=== PATIENT | male | born 1995 | race African-American/Black ===

== ENCOUNTER 2018-07-30 15:00 | Emergency (ER) | payer SELFPAY ==
[~2018-07-30] VITALS: Ht 182.9 cm; Wt 81.6 kg
[2018-07-30] VITALS (7 sets, daily range): BP systolic 122–132; BP diastolic 68–76
[2018-07-30] MEDS ORDERED: LORazepam Inj 2mg/ml 1ml IM ONE (15:15)
[2018-07-30] MEDS ORDERED: DiphenhydrAMINE 50mg/ml Inj IM ONE (15:15)
[2018-07-30] MEDS ORDERED: Haloperidol 5mg/ml Inj IM ONE ×2 (15:15→15:45)
--- NOTE | 2018-07-30 15:28 | NUR ---
Johanny wu in EDM - 07/30/18 at 1557 by LAVELL ED Note: BEHAVIORAL RESTRAINTS APPLIED PER DR ATUL MONTAÑO.
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
--- NOTE | 2018-07-30 15:33 | Emergency Room Report ---
History of Present Illness General Chief Complaint: Overdose Source: Patient, EMS Present Illness HPI Patient presents with abnormal behavior. Paramedics were summoned and evaluated him with Accu-Chek and EKG. He refused to walk at that time. When he did try to walk he started to stumble through traffic and they felt he was a danger to himself. The patient admits to doing marijuana and states that it might be laced with something. He denies any other psychiatric or medical problems at this time. 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 Allergies: Coded Allergies: No Known Allergies (Unverified , 07/30/18) Patient History Limited by: other - refuses to answer Past Medical History: see triage record Social History: Reports: drug use - thc Social History Narrative homeless Reviewed Nursing Documentation: PMH: Agreed; PSxH: Agreed Nursing Documentation-PMH Past Medical History: No History, Except For Review of Systems All Other Systems: limited Physical Exam Vital Signs Date Time Temp Pulse Resp B/P (MAP) Pulse Ox O2 Delivery O2 Flow Rate FiO2 07/30/18 14:53 130 Sp02 EP Interpretation: reviewed, normal General Appearance: well appearing, other - GCS 14 Head: normocephalic Eyes: bilateral eye PERRL, bilateral eye EOMI, bilateral eye Scleral Injection ENT: dry mucus membranes Neck: supple Respiratory: lungs clear, normal breath sounds Cardiovascular #1: regular rate, rhythm Cardiovascular #2: 2+ radial (R) Gastrointestinal: normal inspection, non tender, no mass, non-distended, decreased bowel sounds Musculoskeletal: back normal, normal range of motion Neurologic: alert, oriented - will not answer orientation questions Psychiatric: other - violently trying to get off of gurney, will not answer SI or HI questions Skin: normal inspection, warm/dry Medical Decision Making Restraint Attestation I, Melchor Arita MD, have personally evaluated this patient. Laboratory tests have been reviewed and addressed accordingly. The patient is deemed to present a danger to themselves and/or others. This is based on the exam, history ( provided by EMS) and observed or reported behavior. Attempts for non-invasive measures have been considered and/or attempted, however, have been futile. It is in the best interest of the nursing staff, the patient, and others involved in this patient's care that behavioral restraints be applied. Patient evaluation reveals the following: violently trying to bran off of cecilerney , refusing to answer questions. Medical: Substance Abuse Reaction to Intervention: No change Restraint Reassesment Patient sedated. Restraints removed at 16:10. Patient sleepy but follow commands to open eyes and lift hands. Diagnostic Impression: Primary Impression: Abnormal behavior Additional Impressions: THC use UTI (urinary tract infection) Qualified Codes: N30.00 - Acute cystitis without hematuria ER Course Patient presents with altered level of consciousness and behavior with alleged overdose of THC possibly laced with something. Differential includes electrolyte imbalance, substance abuse, psychiatric disorder amongst others. At this point he's not able to make appropriate decisions and is unsteady on his feet. He's placed on a medical hold, behavioral restraints are applied and the patient will be sedated. EKG sinus tachycardia. Labs with positive for THC. (Benzos had been given here. ) Pyuria. Rocephin given. 17:10 Sleeping. Opens eyes to command. O2 sat 98%. Patient ambulatory. Denies SI or HI. Refuses to wait for discharge papers. Laboratory Tests Test 07/30/18 15:20 White Blood Count 5.3 K/UL (4.8-10.8) Red Blood Count 4.94 M/UL (4.70-6.10) Hemoglobin 14.1 G/DL (14.2-18.0) L Hematocrit 41.1 % (42.0-52.0) L Mean Corpuscular Volume 83 FL (80-99) Mean Corpuscular Hemoglobin 28.6 PG (27.0-31.0) Mean Corpuscular Hemoglobin Concent 34.5 G/DL (32.0-36.0) Red Cell Distribution Width 11.1 % (11.6-14.8) L Platelet Count 191 K/UL (150-450) Mean Platelet Volume 6.6 FL (6.5-10.1) Neutrophils (%) (Auto) 57.5 % (45.0-75.0) Lymphocytes (%) (Auto) 31.3 % (20.0-45.0) Monocytes (%) (Auto) 7.8 % (1.0-10.0) Eosinophils (%) (Auto) 1.3 % (0.0-3.0) Basophils (%) (Auto) 2.2 % (0.0-2.0) H Urine Color Yellow Urine Appearance Clear Urine pH 5 (4.5-8.0) Urine Specific Byron 1.025 (1.005-1.035) Urine Protein 2+ (NEGATIVE) H Urine Glucose (UA) Negative (NEGATIVE) Urine Ketones 1+ (NEGATIVE) H Urine Blood Negative (NEGATIVE) Urine Nitrite Negative (NEGATIVE) Urine Bilirubin Negative (NEGATIVE) Urine Urobilinogen 1 MG/DL (0.0-1.0) H Urine Leukocyte Esterase 1+ (NEGATIVE) H Urine RBC 0-2 /HPF (0 - 0) H Urine WBC 5-10 /HPF (0 - 0) H Urine Squamous Epithelial Cells None /LPF (NONE/OCC) Urine Bacteria Few /HPF (NONE) Urine Granular Casts 0-2 /LPF (NONE) H Sodium Level 142 MMOL/L (136-145) Potassium Level 3.5 MMOL/L (3.5-5.1) Chloride Level 106 MMOL/L (98-107) Carbon Dioxide Level 26 MMOL/L (21-32) Anion Gap 10 mmol/L (5-15) Blood Urea Nitrogen 12 mg/dL (7-18) Creatinine 1.2 MG/DL (0.55-1.30) Estimate Glomerular Filtration Rate > 60 mL/min (>60) Glucose Level 85 MG/DL (74-106) Calcium Level 9.1 MG/DL (8.5-10.1) Total Bilirubin 0.7 MG/DL (0.2-1.0) Aspartate Amino Transferase (AST) 24 U/L (15-37) Alanine Aminotransferase (ALT) 24 U/L (12-78) Alkaline Phosphatase 58 U/L (46-116) Total Creatine Kinase 205 U/L (26-308) Total Protein 7.4 G/DL (6.4-8.2) Albumin 4.3 G/DL (3.4-5.0) Globulin 3.1 g/dL Albumin/Globulin Ratio 1.4 (1.0-2.7) Salicylates Level 1.7 ug/mL (2.8-20) L Urine Opiates Screen Negative (NEGATIVE) Acetaminophen Level < 2 MCG/ML (10-30) L Urine Barbiturates Screen Negative (NEGATIVE) Phencyclidine (PCP) Screen Negative (NEGATIVE) Urine Amphetamines Screen Negative (NEGATIVE) Urine Benzodiazepines Screen Positive (NEGATIVE) H Urine Cocaine Screen Negative (NEGATIVE) Urine Marijuana (THC) Screen Positive (NEGATIVE) H Serum Alcohol < 3 mg/dL EKG Diagnostic Results Rate: tachycardiac Rhythm: NSR ST Segments: no acute changes - ST Rhythm Strip Diag. Results EP Interpretation: yes Rhythm: no PVC's, no ectopy, other - ST Last Vital Signs Date Time Temp Pulse Resp B/P (MAP) Pulse Ox O2 Delivery O2 Flow Rate FiO2 07/30/18 19:35 98.2 76 18 123/76 98 Room Air Status: improved Disposition: ELOPED Condition: Improved Melchor Arita MD Jul 30, 2018 15:33
--- NOTE | 2018-07-30 15:35 | NUR ---
ED Nurse Note: PT EXTREMELY AGITATED AND COMBATIVE ALL OF A SUDDEN. PT YELLING, "GET ME THE FUCK OUT OF HERE!" PT FIGHTING RESTRAINTS AND BANGING HEAD ON THE BED AND CONTINUOUSLY SCREAMING. IM VERSED AND HALDOL DOSAGE VERIFIED WITH DR POLLARD AND ADMINISTERED PER ORDER.
[2018-07-30] MEDS ORDERED: Haloperidol 5mg/ml Inj ONE (15:36)
[2018-07-30 15:55] LABS: BASOPHILS % (AUTO) 2.2 % (0.0-2.0); EOSINOPHILS % (AUTO) 1.3 % (0.0-3.0); HEMATOCRIT 41.1 % (42.0-52.0); HEMOGLOBIN 14.1 G/DL (14.2-18.0); LYMPHOCYTES % (AUTO) 31.3 % (20.0-45.0); MEAN CORPUSCULAR VOLUME 83 FL (80-99); MONOCYTES % (AUTO) 7.8 % (1.0-10.0); NEUTROPHILS % (AUTO) 57.5 % (45.0-75.0); PLATELET COUNT 191 K/UL (150-450); RED BLOOD COUNT 4.94 M/UL (4.70-6.10); RED CELL DISTRIBUTION WIDTH 11.1 % (11.6-14.8); WHITE BLOOD COUNT 5.3 K/UL (4.8-10.8)
[2018-07-30 15:56] LABS: ANION GAP 10 mmol/L (5-15); APPEARANCE,URINE CLEAR; BILIRUBIN, URINE NEGATIVE (NEGATIVE); BLOOD UREA NITROGEN 12 mg/dL (7-18); CALCIUM 9.1 MG/DL (8.5-10.1); CARBON DIOXIDE 26 MMOL/L (21-32); CHLORIDE 106 MMOL/L (98-107); CREATININE 1.2 MG/DL (0.55-1.30); GLUCOSE, URINE (UA) NEGATIVE (NEGATIVE); KETONES,URINE 1+ (NEGATIVE); LEUKOCYTE ESTERASE ,URINE 1+ (NEGATIVE); NITRITE,URINE NEGATIVE (NEGATIVE); PH,URINE 5 (4.5-8.0); POTASSIUM 3.5 MMOL/L (3.5-5.1); PROTEIN,URINE 2+ (NEGATIVE); SODIUM 142 MMOL/L (136-145); UROBILINOGEN,URINE 1 MG/DL (0.0-1.0)
[2018-07-30 16:00] LABS: ALANINE AMINOTRANSFERASE 24 U/L (12-78); ALBUMIN 4.3 G/DL (3.4-5.0); ALBUMIN/GLOBULIN RATIO 1.4 (1.0-2.7); ALKALINE PHOSPHATASE 58 U/L (46-116); ASPARTATE AMINO TRANSFERASE 24 U/L (15-37); BILIRUBIN,TOTAL 0.7 MG/DL (0.2-1.0); CREATINE KINASE 205 U/L (26-308)
[2018-07-30 16:03] LABS: COLOR,URINE YELLOW
--- NOTE | 2018-07-30 16:13 | NUR ---
ED Nurse Note: PT NOW CALM AND VERBALIZES THAT HE IS WILLING TO COOPERATE TO GET OUT OF ER SOON HE CAN. RESTRAINTS REMOVED. PT REMAINS CALM AND STATES HE WILL SLEEP UNTIL RESULTS OF LABS ARE AVAILABLE. PT LAYING PEACEFULLY IN BED IN NAD.
[2018-07-30] MEDS ORDERED: cefTRIAXone 1 GM in NS 55 ML IVPB ONE (16:30)
--- NOTE | 2018-07-30 19:34 | NUR ---
ED Nurse Note: Received patient from TROY Willson. Patient reports no distress and is sleeping, patient is able to be awakened.
--- NOTE | 2018-07-30 20:35 | NUR ---
ED Nurse Note: Patient walked out ED with all belongings, patient was informed that discharge papers will be printed out but left. Patient's IV is still currently on patient, IV located on the right AC 20 gauge. patient also took site monitor leads. unable to find patient outside. Patient has not signed paperwork.
--- NOTE | 2018-07-31 13:35 | Cardiology Report ---
APPROVED REPORT EKG Measurement Heart [id number] Sinus tachycardia Otherwise normal ECG
== END 2018-07-30 20:35 | disposition left against medical advice (07) ==
LOC: EDBD 15:00 → EMR 15:22
DX: F91.9 Conduct disorder, unspecified (principal); F12.90 Cannabis use, unspecified, uncomplicated; N39.0 Urinary tract infection, site not specified; R00.0 Tachycardia, unspecified
CPT/HCPCS: 36415; 80053; 80307; 81003; 82550; 85025; 93005; 96361; 96365; 96372; 99284; G0480; J0696; J1200; J1630; J2250; 80329

== ENCOUNTER 2018-07-30 23:22 | Emergency (ER) | payer MEDICAID ==
[~2018-07-30] VITALS: Ht 180.3 cm; Wt 81.6 kg
[2018-07-30 23:30] VITALS: BP 146/81
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
--- NOTE | 2018-07-31 | NUR ---
ED Nurse Note: PATIENT'S BELONGINGS IN LOCKER #3. BELONGINGS LIST COMPLETED
--- NOTE | 2018-07-31 00:21 | NUR ---
Patient'ts father left phone number: Te . [phone]
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
[2018-07-31 02:40] VITALS: BP 125/82
--- NOTE | 2018-07-31 02:49 | NUR ---
ED Nurse Note: Patient is asleep. VSS
--- NOTE | 2018-07-31 03:09 | NUR ---
HAND-OFF: Report given to Rios Winter RN.
--- NOTE | 2018-07-31 03:11 | NUR ---
ED Nurse Note: RECEIVED PATIENT FROM TROY WATTS. PT RESTING COMFORTABLY IN BED. NAD. VSS. OFFERED FOOD, WATER AND TOILETING; PATIENT REFUSED.
--- NOTE | 2018-07-31 04:30 | NUR ---
ED Nurse Note: PATIENT SLEEPING COMFORTABLY IN NAD.
--- NOTE | 2018-07-31 05:33 | NUR ---
ED Nurse Note: Pt sleeping.
[2018-07-31 06:07] VITALS: BP 125/79
--- NOTE | 2018-07-31 06:08 | NUR ---
ED Nurse Note: PATIENT AWAKE AND ALERT. NAD. PT STATES HE WANTS TO GO HOME. REORIENTED TO SITUATION. AWAITING FOR PLACEMENT IN PSYCH FACILITY
--- NOTE | 2018-07-31 07:00 | NUR ---
ED Nurse Note: SITTER AT THE BEDSIDE
--- NOTE | 2018-07-31 07:05 | NUR ---
ED Nurse Note: received report from TROY Patel and assumed care, pt sleeping at this time, no sx distress, resp even and unlabored on RA, will cont monitor. sitter at the bedside.
--- NOTE | 2018-07-31 07:05 | NUR ---
HAND-OFF: Report given to TROY Akers. Patient sleeping comfortably. Endorsed to receiving RN that pt is waiting for psych facility placement. 5150 form in file.
[2018-07-31 07:30] VITALS: BP 115/74
--- NOTE | 2018-07-31 08:00 | NUR ---
ED Nurse Note: pt sleeping at this time, arousable by light shake, pt was offered food, but refused, pt states he wants to sleep, currently denies SI/HI/VH/AH, will cont monitor, pt advised to notify staff if needed assist.
[2018-07-31 11:57] VITALS: BP 118/73
--- NOTE | 2018-07-31 12:04 | NUR ---
ED Nurse Note: [facility] ambulance at the bedside for transport and endorsed care.
--- NOTE | 2018-07-31 12:24 | NUR ---
ED Nurse Note: pt getting transferred to [facility], all belongings left w/ pt, vss, resp even and unlabored on RA.
--- NOTE | 2018-07-31 12:24 | NUR ---
ED Nurse Note: called dad and informed him regarding the transfer information. dad is aware pt. is getting transferred to [facility]. gave address and contact info of the facility
[2018-07-31 12:25] VITALS: BP 118/73
== END 2018-07-31 12:25 ==
LOC: EDBD 23:22 → EMR 23:36
DX: F29 Unspecified psychosis not due to a substance or known physiological condition (principal)
CPT/HCPCS: 99285